=== PATIENT | male | born 1940 | race Caucasian/White ===

== ENCOUNTER → 2018-05-29 | Outpatient (CLI) | payer OTHER, MEDICARE | LOC: FIMAGING 13:38 | PROVIDERS: ATTEND Internal Medicine | DX: G31.9 Degenerative disease of nervous system, unspecified (principal); R42 Dizziness and giddiness; M79.10 Myalgia, unspecified site; R25.1 Tremor, unspecified ==

== ENCOUNTER → 2018-07-07 | Outpatient (CLI) | payer OTHER, MEDICARE | LOC: BHLMT 11:30 | PROVIDERS: ATTEND Internal Medicine Interventional Cardiology | DX: R93.1 Abnormal findings on diagnostic imaging of heart and coronary circulation (principal) | CPT/HCPCS: 93306-PO ==